=== PATIENT | male | born 1990 | race Hispanic/Latino ===

== ENCOUNTER 2024-02-15 12:49 | Emergency (ER) | payer OTHER, SELFPAY ==
[2024-02-15] MEDS ORDERED: Iopamidol-370 76% 500 ML MDV (1 ML CHARGE) ONE (15:52)
== END 2024-02-15 16:59 | disposition home or self-care (01) ==
LOC: ERS 12:49
DX: K40.90 Unilateral inguinal hernia, without obstruction or gangrene, not specified as recurrent (principal)
CPT/HCPCS: 74177; Q9967

== ENCOUNTER 2024-03-06 11:00 | Emergency (ER) | payer SELFPAY ==
[2024-03-06] MEDS ORDERED: Ibuprofen 800 MG TAB ONE (12:18)
== END 2024-03-06 12:35 | disposition home or self-care (01) ==
LOC: ERS 11:00
DX: R51.9 Headache, unspecified (principal)
CPT/HCPCS: 99283